=== PATIENT | male | born 1995 | race Two or more races ===

== ENCOUNTER 2018-04-22 16:16 | Emergency (ER) | payer OTHER ==
[~2018-04-22] VITALS: Ht 167.6 cm; Wt 63.5 kg
--- NOTE | 2018-04-22 16:20 | NUR ---
AAOX2, BIBRA 99 FROM HOME C/O AGGRESSIVE BEHAVIOR, HX OF AUTISM. RR IS EVEN AND UNLABORED WITH NAD NOTED. SKIN IS WARM AND NON DIAPHORETIC. AWAITING MD FOR EVAL.
[2018-04-22] MEDS ORDERED: diphenhydrAMINE HCL 50 MG/ML VIAL ONE (17:13)
[2018-04-22] MEDS ORDERED: HALOPERIDOL LACTATE INJ 5 MG/ML VIAL ONE (17:14)
[2018-04-22] MEDS ORDERED: risperiDONE 1 MG TABLET ONE (17:14)
--- NOTE | 2018-04-22 17:22 | NUR ---
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
[2018-04-22] MEDS ORDERED: HALOPERIDOL LACTATE INJ 5 MG/ML VIAL IM ONE (17:30)
[2018-04-22] MEDS ORDERED: diphenhydrAMINE HCL 50 MG/ML VIAL IM ONE (17:30)
[2018-04-22] MEDS ORDERED: risperiDONE 0.25 MG TABLET PO ONE (17:30)
--- NOTE | 2018-04-22 17:33 | NUR ---
Patient discharged to home in stable condition. Written and verbal after care instructions given. Patient verbalizes understanding of instruction.
[2018-04-22 17:34] VITALS: BP 124/80
== END 2018-04-22 17:43 | disposition home or self-care (01) ==
LOC: ER 16:18
DX: R45.1 Restlessness and agitation (principal); F84.0 Autistic disorder
CPT/HCPCS: 99284; A4606; J1200; J1630; Z7610

== ENCOUNTER 2018-05-13 21:28 | Emergency (ER) | payer OTHER ==
[~2018-05-13] VITALS: Ht 172.7 cm; Wt 77.1 kg
--- NOTE | 2018-05-13 21:54 | NUR ---
BB RA; "BIT MOTHER ON RIGHT LOWER LEG, PT HAS HX OF AUTISM", NAD NOTED, VSS, RESP EVEN AND UNLABORED, PT WAS PUT ON MONITOR, WAITING FOR MD VILLAGRAN.
--- NOTE | 2018-05-13 22:56 | NUR ---
URINE COLLECTED SENT TO LAB
[2018-05-13] MEDS ORDERED: risperiDONE 1 MG TABLET ONE (23:26)
--- NOTE | 2018-05-13 23:29 | NUR ---
ACCIDENTALLY DROPPED 1 TAB OF RISPERDAL 1MG, PULLED OUT ANOTHER ONE AND MEDICATED PT PER MD ORDER.
[2018-05-13] MEDS ORDERED: risperiDONE 0.25 MG TABLET PO ONE (23:30)
--- NOTE | 2018-05-13 23:31 | NUR ---
REPORT GIVEN TO JOSSIE JAQUEZ RN.
[2018-05-13 23:39] VITALS: BP 148/89
--- NOTE | 2018-05-13 23:40 | NUR ---
Patient discharged to home in stable condition. Written and verbal after care instructions given. Patient verbalizes understanding of instruction.
== END 2018-05-13 23:40 | disposition home or self-care (01) ==
LOC: ER 21:29
DX: F84.0 Autistic disorder (principal); R45.1 Restlessness and agitation; F41.9 Anxiety disorder, unspecified
CPT/HCPCS: 99284; A4606; Z7610

== ENCOUNTER 2020-08-27 22:49 | Emergency (ER) | payer OTHER ==
[~2020-08-27] VITALS: Ht 172.7 cm; Wt 72.6 kg
--- NOTE | 2020-08-27 22:55 | NUR ---
PT BIB EMS C/O AGITATION. PER REPORT, MOM CALLED [phone] DUE TO MOM UNABLE CONTROL PT. PT AAOX3, VSS, RESPIRATIONS EVEN AND UNLABORED ON RA W/ NAD NOTED. PT CONNECTED TO THE MONITOR AND POX. SITTER AT BEDSIDE FOR SAFETY
[2020-08-27] MEDS ORDERED: risperiDONE 0.25 MG TABLET PO ONE (23:00)
[2020-08-27] MEDS ORDERED: LORAZEPAM INJ 2 MG/ML VIAL ONE (23:13)
--- NOTE | 2020-08-27 23:22 | NUR ---
PT'S PARENTS REQUESTED PSYCHIATRIC ADMISSION. MD LUNA
--- NOTE | 2020-08-27 23:22 | NUR ---
PARENTS REFUSED ATIVAN 2 MG IM
[2020-08-27 23:36] LABS: BASOPHILS # (AUTO) 0.1 /CMM (0.0-0.2); BASOPHILS % (AUTO) 0.7 % (0.0-2.0); EOSINOPHILS % (AUTO) 0.8 % (0.0-6.0); HEMATOCRIT 44 % (39-51); HEMOGLOBIN 14.4 g/dL (13.5-17.5); LYMPHOCYTES # (AUTO) 2.9 /CMM (0.8-4.8); LYMPHOCYTES % (AUTO) 32.6 % (20.0-44.0); MEAN CORPUSCULAR HGB CONC 33 g/dl (31.0-36.0); MEAN CORPUSCULAR VOLUME 89 fL (80-96); MONOCYTES # (AUTO) 1.5 /CMM (0.1-1.30); MONOCYTES % (AUTO) 16.3 % (2.0-12.0); NEUTROPHILS # (AUTO) 4.4 /CMM (1.8-8.9); NEUTROPHILS % (AUTO) 49.6 % (43.0-81.0); PLATELET COUNT (AUTO) 193 /CMM (150-450); RED BLOOD CELL COUNT(AUTO) 4.93 MIL/uL (4.5-6.0)
[2020-08-27 23:45] LABS: CALCIUM, SERUM 8.7 mg/dL (8.5-10.1); CARBON DIOXIDE 30 mmol/L (21-32); CHLORIDE 100 mmol/L (98-107); CREATININE 0.9 mg/dL (0.6-1.3); GLUCOSE 107 mg/dL (74-106); POTASSIUM 4.2 mmol/L (3.5-5.1); SODIUM SERUM 137 mmol/L (136-145); UREA NITROGEN, BLOOD 11 mg/dL (7-18)
--- NOTE | 2020-08-27 23:53 | NUR ---
COVID SWAB SENT TO LAB
[2020-08-27 23:54] LABS: ACETAMINOPHEN < 2 ug/ml (10-30); ALANINE AMINOTRANSFERASE 83 U/L (12-78); ALBUMIN 3.6 g/dL (3.4-5.0); ALCOHOL, BLOOD < 3 mg/dL (0-0); ALKALINE PHOSPHATASE 70 U/L (46-116); BILIRUBIN,DIRECT 0.1 mg/dL (0.0-0.2); BILIRUBIN,TOTAL 0.3 mg/dL (0.2-1.0); TOTAL PROTEIN, SERUM 7.8 g/dL (6.4-8.2)
[2020-08-28] MEDS: LORAZEPAM INJ 2 MG/ML VIAL IM ONE ×2 (00:01→00:57)
[2020-08-28 00:05] LABS: ASPARTATE AMINOTRANSFERASE 41 U/L (15-37)
--- NOTE | 2020-08-28 00:34 | NUR ---
CALL FROM LAB. RAPID COVID NEGATIVE.
[2020-08-28 00:47] LABS: LYMPHOCYTES % (MANUAL) 38 % (16-48); MONOCYTES % (MANUAL) 8 % (0-11.0); NEUTROPHILS % (MANUAL) 54 (42-76)
--- NOTE | 2020-08-28 00:50 | NUR ---
FARIHA CRISIS CARRIAGE FEEDER PAGED PER DR MESSINA.
[2020-08-28] MEDS ORDERED: LORAZEPAM INJ 2 MG/ML VIAL ONE (00:52)
--- NOTE | 2020-08-28 01:50 | NUR ---
FARIHA CRISIS EDUCATION REPORTER AT BEDSIDE FOR EVAL.
[2020-08-28] MEDS ORDERED: diphenhydrAMINE HCL 50 MG/ML VIAL ONE (01:54)
[2020-08-28] MEDS ORDERED: diphenhydrAMINE HCL 50 MG/ML VIAL IM ONE (02:00)
--- NOTE | 2020-08-28 02:43 | NUR ---
PT AMBULATED OUT OF ROOM, WAS TOLD TO GO BACK TO HIS ROOM.
--- NOTE | 2020-08-28 04:52 | NUR ---
PT ASLEEP, PLACED ON MONITOR, VSS.
--- NOTE | 2020-08-28 05:59 | NUR ---
PT ASLEEP, PROVIDED WITH MORE BLANKETS
--- NOTE | 2020-08-28 06:39 | NUR ---
ATTEMPTED TO CALL PT'S MOTHER, UNABLE TO GET IN CONTACT.
--- NOTE | 2020-08-28 07:08 | NUR ---
SPOKE TO PT'S MOTHER, WILL CALL FRETTED INSTRUMENT INSPECTOR TO AVAYA ENGINEER PT.
--- NOTE | 2020-08-28 09:00 | NUR ---
CALLED PTS MOTHER. PER MOM, THEY WILL BE HERE TO SELF PROPELLED HOT MIX ROLLER OPERATOR PT IN ABOUT AN HR D/T TRAFFIC
--- NOTE | 2020-08-28 09:47 | NUR ---
CALLED PTS MOM EDGARD ONCE AGAIN REGARDING ETA. PER MOM, CAREGIVER IS ON THE WAY AND SHE WILL CALL BACK REGARDING ETA.
[2020-08-28 10:06] VITALS: BP 122/65
--- NOTE | 2020-08-28 10:06 | NUR ---
DC HOME PT PICKED UP BY HIS CAREGIVER. Patient discharged to home in stable condition. Written and verbal after care instructions given. Patient verbalizes understanding of instruction.
== END 2020-08-28 10:07 | disposition home or self-care (01) ==
LOC: ER 22:51
DX: R45.1 Restlessness and agitation (principal); F84.0 Autistic disorder; Z20.828 Contact with and (suspected) exposure to other viral communicable diseases
CPT/HCPCS: 36415; 80048; 80076; 80299; 80307; 80320; 85007; 85025; 87426; 96372 ×2; 99284; C9803; J1200; J2060; G0480